=== PATIENT | female | born 1990 | race Caucasian/White ===

== ENCOUNTER 2016-12-15 11:06 | Emergency (ER) | payer OTHER ==
[~2016-12-15] VITALS: Ht 165.1 cm; Wt 56.4 kg
[2016-12-15 11:17] VITALS: BP 114/82; PULSE 98; RESP 16; TEMP 98.8; O2SAT 100
[2016-12-15] MEDS ORDERED: METH5TAB4 PO (11:33)
[2016-12-15] MEDS ORDERED: AMOX400S3 PO (11:39)
--- NOTE | 2016-12-15 11:50 | PD ---
HPI Chief Complaint: Oral / Dental Pain or Problem Time Seen by Provider: 11:25 Travel History International Travel<30 days: No Contact w/Intl Traveler<30days: No Traveled to known affect area: No History of Present Illness HPI The patient was seen and examined in the presence of the nurse. He complains of left-sided dental pain and swelling of the face. She requests antibiotics. No fever. She has chronic dental problems. Symptoms severity is moderate PFSH Past Medical History Diminished Hearing: No Thyroid Disease: Yes Tetanus Vaccination: Unknown Influenza Vaccination: No ?: Not LMP: ONE WEEK Past Surgical History Surgical History: No Previous Surgery Social History Alcohol Use: No Tobacco Use: No Substance Use: No Allergies-Medications (Allergen,Severity, Reaction): Coded Allergies: Sulfa (Verified Adverse Reaction, Unknown, HEADACHE, NAUSEA, 12/15/16) Reported Meds & Prescriptions Reported Meds & Active Scripts Active Amoxicillin Liq (Amoxicillin) 400 Mg/5 Ml Susp 400 Mg PO TID 7 Days Reported Methimazole 5 Mg Tab 5 Mg PO DAILY Review of Systems General / Constitutional: No: Fever HENT: No: Headaches Cardiovascular: No: Chest Pain or Discomfort Physical Exam Narrative NECK: Symmetrical appearance, midline trachea. No mass or crepitus. Thyroid without enlargement, tenderness, or mass. SKIN: Inspection shows no rash or ulcers. Palpation shows no induration or nodules. Oral cavity: Poor dentition. She has 2 rotted out molars on the top left jaw which I think are responsible for the problem here. no gingival abscess seen Data Data Last Documented VS Vital Signs Date Time Temp Pulse Resp B/P Pulse Ox O2 Delivery O2 Flow Rate FiO2 12/15/16 11:17 98.8 98 16 114/82 100 MDM Medical Decision Making Medical Screen Exam Complete: Yes Emergency Medical Condition: Yes Medical Record Reviewed: Yes Differential Diagnosis Dental infection, gingivitis, cavity Narrative Course I have reviewed the patient's electronic medical record. Patient could benefit from antibiotic therapy. I wrote some amoxicillin, she requests liquid. She declines pain medicine Needs dental follow-up Diagnosis Primary Impression: Dentalgia Additional Instructions: Follow up with dentist Med/Other Pt SpecificInfo: Prescription(s) given Scripts Amoxicillin Liq 400 Mg/5 Ml [id number] Mg PO TID 7 Days Ref 0 Prov:John Curtis MD 12/15/16 Disposition: 01 DISCHARGE HOME Condition: Stable John Curtis MD Dec 15, 2016 11:50
== END 2016-12-15 12:09 | disposition home or self-care (01) ==
LOC: PHED 11:06
DX: K08.89 Other specified disorders of teeth and supporting structures (principal)
CPT/HCPCS: 99282